=== PATIENT | female | born 1945 | race Caucasian/White ===

== ENCOUNTER 2016-06-28 13:44 | Inpatient (IN) | payer MEDICARE ==
[~2016-06-28] VITALS: Ht 170.2 cm; Wt 109.2 kg
[2016-06-29] MEDS ORDERED: LORA-361 PO (09:51)
[2016-06-29] MEDS ORDERED: BUPR300T PO (09:51)
[2016-06-29] MEDS ORDERED: IBUP200T2 PO (09:51)
[2016-06-29] MEDS ORDERED: VITA100064 PO (09:51)
[2016-06-29] MEDS ORDERED: PAXI10TA2 PO (09:51)
[2016-06-29] MEDS ORDERED: MEDI220T PO (09:51)
[2016-06-29] MEDS ORDERED: INDO25SU PO (09:51)
[2016-06-29] MEDS ORDERED: MAGN250T2 PO (09:51)
[2016-06-29] MEDS ORDERED: CALCCHW9 PO (09:51)
[2016-06-29] MEDS ORDERED: MOBI7.5T PO (09:51)
[2016-06-29] MEDS ORDERED: TRAM50TA PO (09:51)
[2016-06-29] MEDS ORDERED: LOSA100T3 PO (09:51)
[2016-06-29] MEDS ORDERED: SACC1CAP3 PO (09:51)
[2016-06-29] MEDS ORDERED: MULTTAB25 PO (09:51)
[2016-07-16] MEDS ORDERED: SODIUM CHLOR 0.9% 250 ML INJ 250 ML ONE (06:03)
[2016-07-16] MEDS ORDERED: VANCOMYCIN HCL 1000 MG VIAL ONE (06:03)
[2016-07-16] MEDS ORDERED: ceFAZolin 2 GM PREMIX 50 ML ONE (06:03)
[2016-07-16 06:07] VITALS: BP 172/84; PULSE 93; RESP 16; TEMP 98.6; O2SAT 95
[2016-07-16] MEDS ORDERED: GENTAMICIN SULFATE 80 MG/2 ML VIAL ONE (06:27)
[2016-07-16] MEDS ORDERED: HEPARIN SODIUM - SQ 10,000 UNITS/ML VIAL ONE (06:32)
[2016-07-16] MEDS ORDERED: SODIUM CHLORIDE 0.9% INJ 100 ML ONE (06:32)
[2016-07-16] MEDS ORDERED: ceFAZolin INJ 1,000 MG VIAL ONE (06:32)
[2016-07-16] MEDS ORDERED: ENOX40P SQ (06:42)
[2016-07-16] MEDS ORDERED: ASPI81CH37 CHEW (06:43)
[2016-07-16] MEDS ORDERED: HYDR-3288 PO (06:43)
[2016-07-16] MEDS ORDERED: Post-op Orders (for Pharmacy) MISC XX ONE (06:45)
[2016-07-16] MEDS ORDERED: ZOLPIDEM TARTRATE 5 MG TAB PO PRN (06:45)
[2016-07-16] MEDS ORDERED: ONDANSETRON HCL 4 MG/2 ML VIAL IVP PRN (06:45)
[2016-07-16] MEDS ORDERED: NALOXONE HCL 0.4 MG/ML AMP IV PRN (06:45)
[2016-07-16] MEDS ORDERED: BISACODYL 10 MG SUPP RECTAL PRN (06:45)
[2016-07-16] MEDS ORDERED: ACETAMINOPHEN/HYDROcodone 325 MG/7.5 MG TAB PO PRN ×2 (06:45)
[2016-07-16] MEDS ORDERED: diphenhydrAMINE HCL 50 MG/ML VIAL IV PRN (06:45)
[2016-07-16] MEDS ORDERED: fentaNYL CITRATE 250 MCG/5 ML AMP ONE (06:46)
[2016-07-16] MEDS ORDERED: MIDAZOLAM HCL 2 MG/2 ML VIAL ONE (06:46)
[2016-07-16] MEDS ORDERED: ACETAMINOPHEN 1000 MG/100 ML VIAL IV ONE (06:46)
[2016-07-16] MEDS ORDERED: FAMOTIDINE 20 MG/2 ML VIAL ONE (06:47)
[2016-07-16] MEDS ORDERED: DEXAMETHASONE SOD PHOS 4 MG/ML VIAL ONE (06:47)
[2016-07-16] MEDS ORDERED: TRANEXAMIC ACID IV SCH (07:00)
[2016-07-16] MEDS: POVIDONE IODINE 7.5% SCRUB 118 ML BOTTLE TOPICAL SCH (07:00)
[2016-07-16] MEDS ORDERED: ROPIVACAINE PERI-ARTICULAR INJECTION. P-ARTICULR SCH ×5 (07:00)
[2016-07-16] MEDS ORDERED: TRANEXAMIC PERI-ARTICULAR 3,000 MG/NS 100 ML P-ARTICULR SCH ×2 (07:00)
[2016-07-16] MEDS ORDERED: ceFAZolin 1,000 MG/NS 100 ML IV SCH ×2 (07:00)
[2016-07-16] MEDS: CHLORHEXIDINE GLUCONATE 4% SOLN 120 ML BTL TOPICAL SCH (07:00)
[2016-07-16] MEDS ORDERED: SODIUM CHLORIDE 0.9% IV SCH (07:00)
[2016-07-16] MEDS ORDERED: VANCOMYCIN 1000 MG/NS 250 ML (for <70 kg) IV SCH ×2 (07:00)
[2016-07-16] MEDS ORDERED: SODIUM CHLORIDE 0.9% FLUSH 10 ML FLUSH IV FLUSH PRN (08:30)
[2016-07-16] MEDS ORDERED: PILL SPLITTER OTHER PRN (08:45)
[2016-07-16] MEDS ORDERED: NON-FORMULARY DRUG (Losartan-Hydrochlorothiazide 1 TAB) PO SCH (09:00)
[2016-07-16] MEDS: PARoxetine HCL 20 MG TAB PO SCH (09:00)
[2016-07-16] MEDS: HYDROCHLOROTHIAZIDE 12.5 MG CAP PO SCH (09:00)
[2016-07-16] MEDS: LOSARTAN 50 MG TAB PO SCH (09:00)
[2016-07-16] MEDS ORDERED: buPROPion HCL 150 MG EXTENDED RELEASE TAB PO SCH (09:00)
[2016-07-16] MEDS ORDERED: DO NOT ADM ANY ANTICOAGULANT DRUGS PRN (09:01)
[2016-07-16] MEDS ORDERED: *morphine SULFATE 8 MG/ML PERIprocedure ONLY ONE ×2 (09:14→09:20)
--- NOTE | 2016-07-16 09:15 | RADRPT ---
EXAM DATE/TIME: 07/16/2016 07:20 [facility] COMPARISON: No previous studies available for comparison. INDICATIONS : Total left hip replacement. MEDICAL HISTORY : None. SURGICAL HISTORY : None. ENCOUNTER: Initial ACUITY: 1 day PAIN SCORE: Non-responsive. LOCATION: Left hip. FINDINGS: Total hip arthroplasty is in place. The femoral and acetabular components appear intact. CONCLUSION: Intact total hip prosthesis for technique. Saeed Martinez MD on July 16, 2016 at 9:14 Board Certified Radiologist. This report was verified electronically.
--- NOTE | 2016-07-16 09:16 | MP ---
cc: JEFFY ALVAREZ DATE OF SURGERY 07/16/2016 PREOPERATIVE DIAGNOSIS Left hip osteoarthritis POSTOPERATIVE DIAGNOSIS Left hip osteoarthritis PROCEDURE Left total hip arthroplasty. SURGEON Dr. Jeffy Alvarez EDUCATION ADMINISTRATIVE ASSISTANT Francisco J Saravia PA-C ANESTHESIA General. ESTIMATED BLOOD LOSS 200 cc COMPLICATIONS None. IMPLANTS USED DePuy Cor[place] Press-Fit high-offset size 13 femoral stem, size 48 DePuy [place] solid Gription cup, size 32 ceramic head, +5 neck. JUSTIFICATION This patient is a 71-year-old female with history of severe end-stage osteoarthritis involving the left hip. She has severe, disabling pain with standing, walking, ambulation, with weightbearing activities, even severe pain at rest. She has failed greater than three months of nonoperative conservative treatment to include medications, therapy, ambulatory assistive aids, home exercise program, weight loss attempts. X-rays of the left hip reveal severe end-stage osteoarthritis with [id number] joint space narrowing, subchondral sclerosis, subchondral cyst, osteophyte formation and subluxation. The patient was counseled as to the risks, benefits and alternatives to total hip arthroplasty. The risks which were discussed include but are not limited to anesthesia, bleeding, infection, damage to nerves, blood vessels, pain, stiffness, dislocation, leg length discrepancy, blood clots, pulmonary embolism and even . The patient's pain is severe. She favored the benefits over the risks and did wish to proceed with surgery. PROCEDURE IN DETAIL Written consent was obtained. The patient was identified by name and taken to the operating room, placed supine on the operating room table. General anesthesia was administered as well as 2 grams of IV Ancef and 1 gram of IV vancomycin. The patient was transferred to the Ewing table. The left and right feet were placed in the padded traction boots. All bony prominences and pressure points were well padded. The left hip and left lower extremity were prepped and draped using isopropyl alcohol solution, Hibiclens solution and Chloraprep solution. After a time-out was performed, a longitudinal incision was made over the anterolateral aspect of the left hip. The fascial layer was incised. Dissection was carried over tensor fascia aby, beneath the rectus femoris to allow exposure of the anterior capsule. A capsulotomy incision was performed. An oscillating saw was used to perform a femoral neck cut. The osteoarthritic femoral head and neck component was removed. A 10 blade scalpel was used to excise the labrum. Sequential reaming began at size 45-mm and was carried through to size 48-mm. Subsequently, a solid [place] DePuy Gription cup was impacted in approximately 45 degrees of abduction and 10 degrees of anteversion. There was good purchase and fixation after Press-Fit impaction. A screw hole eliminator was placed, followed by neutral liner. The liner was impacted in place and tested for stability. Attention was then turned to the femur where the leg was externally rotated, extended and adducted. The capsule was released at the inner surface of the greater trochanter to allow for elevation and lateralization of the femur. A box-cutting osteotome was used to gain entrance into the intramedullary canal of the femur. This was followed by canal finder and sequential broaching up to size 13. Calcar planer was used to plane the calcar. Trial head and neck combinations were evaluated and the final components implanted. With the +9 neck and 32 ceramic head, the leg could achieve external rotation to 70 degrees and extension all the way down to the ground without evidence of anterior instability. Soft tissue tension felt appropriate. No evidence of impingement. The surgical wound was thoroughly irrigated with sterile saline pulse lavage antibiotic impregnated solution. The fascial layer was closed with #1 Vicryl suture, the subcutaneous layer with 2-0 Vicryl suture. The skin was closed with Dermabond. Sterile dressings were applied. The patient tolerated the procedure well, no intraoperative complications noted. Francisco J Saravia, physician senior sales assistant certified, was present during the entire procedure to include patient positioning and the procedure itself. The medical necessity of a physician senior sales assistant was indicated in this case due to the complexity of the procedure. He assisted with appropriate manipulation of the leg and also retraction of muscle, tendon, bone and neurovascular structures. He assisted with both preparation of bone and also implantation of the prosthetic replacement. Jeffy Alvarez MD JWM/FRANCISCO /8:48 AM /9:02 AM
[2016-07-16] MEDS ORDERED: hydrALAZINE HCL 20 MG/ML VIAL IV PRN (09:45)
[2016-07-16] MEDS ORDERED: *MEPERIDINE 25 MG INJ VIAL PERIprocedural Use ONLY ONE (09:47)
[2016-07-16] MEDS: SODIUM CHLOR 0.9% 1000 ML INJ 1,000 ML IV SCH ×2 (09:54→22:53)
[2016-07-16] MEDS: SODIUM CHLORIDE 0.9% FLUSH 10 ML FLUSH IV FLUSH SCH ×2 (10:00→19:13)
[2016-07-16] MEDS ORDERED: *HYDROmorphone PF 1 MG VIAL PERIprocedural Use ONLY ONE (10:04)
[2016-07-16] MEDS ORDERED: PROPOFOL 200 MG/20 ML AMP IV ONE (10:57)
[2016-07-16] MEDS ORDERED: NEOSTIGMINE 3 MG/3 ML SYR IV ONE (10:57)
[2016-07-16] MEDS ORDERED: PHENYLEPH/NS 1000 MCG/10 ML SYR IV ONE (10:58)
[2016-07-16] MEDS ORDERED: ONDANSETRON HCL 4 MG/2 ML VIAL IV PUSH ONE (10:58)
--- NOTE | 2016-07-16 11:07 | RADRPT ---
EXAM DATE/TIME: 07/16/2016 10:32 [facility] COMPARISON: No previous studies available for comparison. INDICATIONS : Post-op total left hip arthroplasty. MEDICAL HISTORY : Hypertension. SURGICAL HISTORY : Total knee replacement, left. Total knee replacement, right. Fusion, lumbar. Right hand surgery. ENCOUNTER: Initial ACUITY: 1 day PAIN SCORE: 10/10 LOCATION: Left hip. FINDINGS: Examination of the left hip was performed with AP Pelvis. There is a left total hip arthroplasty. Bot h the femoral and acetabular components are appropriately positioned. No fracture. CONCLUSION: Appropriate postoperative appearance of the left hip status post total arthroplasty. Bimal Estrada MD on July 16, 2016 at 11:04 Board Certified Radiologist. This report was verified electronically.
[2016-07-16 12:00] VITALS: BP 145/76; PULSE 83; RESP 16; TEMP 97.1; O2SAT 96
--- NOTE | 2016-07-16 12:44 | PD.CONS ---
HPI Service [facility] Hospitalists Consult Requested By Dr. Joe Reason for Consult Medical management Primary Care Physician Shiva Mcneal M.D. Diagnoses: History of Present Illness This a 71-year-old white female with past medical history osteoarthritis, COPD, hypertension. Patient presented to emergency room for elective surgery. Underwent left hip arthroplasty. Tolerated procedure well, minimal pain. Denies any chest pain, no shortness of breath. Has history of COPD which has been well managed, is not on any oxygen or any DuoNeb's. Quit smoking many years ago. Hospitalist services are requested for medical management. (Karuna Fontaine) Past Family Social History Past Medical History COPD Hypertension Anxiety Osteoarthritis Right breast cancer Past Surgical History L4-L5 fusion Right lumpectomy Cataract surgery Bilateral knee replacement Finger surgery Reported Medications Reported Meds & Active Scripts Active [place] (Hydrocodone-Acetaminophen) 7.5-325 mg Tab 1-2 Tab PO Q6H PRN Aspirin Low Dose (Aspirin) 81 Mg Chew 81 Mg CHEW BID Lovenox Inj (Enoxaparin Sodium) 40 Mg/0.4 Ml Syr 40 Mg SQ DAILY Reported Paxil (Paroxetine HCl) 10 Mg Tab 10 Mg PO DAILY Probiotic (Saccharomyces Boulardii) 250 Mg Cap 250 Mg PO BID Magnesium 250 Mg Tab 250 Mg PO DAILY Vitamin D (Cholecalciferol) 1,000 Unit Tab 1,000 Units PO DAILY Calcium 1200 (Calcium Carbonate-Vitamin D W/Minerals) 1,200-1,000 Mg-Unit Chew 1 Tab PO DAILY Multi For Her 50+ (Multiple Vitamins W/ Minerals) 1 Tab Tab 1 Tab PO DAILY Claritin (Loratadine) 10 Mg Tab 10 Mg PO DAILY PRN Tramadol (Tramadol HCl) 50 Mg Tab 50 Mg PO DAILY PRN Ibuprofen 200 Mg Tab 200 Mg PO Q4H PRN Naproxen Sodium 220 Mg Tab 220 Mg PO DAILY PRN Bupropion HCl ER 24 HR (Bupropion HCl) 300 Mg Tab 300 Mg PO DAILY Losartan-Hydrochlorothiazide 100-12.5 Mg Tab 1 Tab PO DAILY (Karuna Fontaine) Allergies: Coded Allergies: No Known Allergies (Unverified , 07/16/16) Active Ordered Medications Inpatient Medications Acetaminophen/ Hydrocodone Bitart ([place] 7.5-325 Mg) 2 tab Q4H PRN PO PAIN SCALE 5 TO 10; Start 07/16/16 at 06:45; Stop 07/16/16 at 10:53; Status DC Bisacodyl (Dulcolax Supp) 10 mg DAILY PRN RECTAL CONSTIPATION; Start 07/16/16 at 06:45 Bupropion HCl (Wellbutrin Sr) 150 mg BID PO ; Start 07/17/16 at 09:00 Cefazolin Sodium 1000 mg/Sodium Chloride 100 ml @ 200 mls/hr COPER HAND IV ; Start 07/16/16 at 07:00; Stop 07/19/16 at 06:59 Cefazolin Sodium/ Sodium Chloride (Ancef Inj/NS Inj) 100 ml @ 200 mls/hr Q6H IV Last administered on 07/16/16t 13:02; Start 07/16/16 at 12:00; Stop at 00:29 Chlorhexidine Gluconate 1 applic 1 applic ONCE TOPICAL ; Start 07/16/16 at 07:00 ; Stop 07/19/16 at 06:59 Diphenhydramine HCl (Benadryl Inj) 25 mg Q6H PRN IV ITCHING; Start 07/16/16 at 06:45 Docusate Sodium (Colace) 100 mg BID PO ; Start 07/17/16 at 21:00 Enoxaparin Sodium (Lovenox Inj) 40 mg Q24H SQ ; Start 07/17/16 at 08:00; Stop at 08:01 Hydralazine HCl 10 mg 10 mg UNSCH X1 PRN IV SBP > 170, DBP > 90; Start at 09:45; Stop 07/16/16 at 23:59 Hydrochlorothiazide (Microzide) 12.5 mg DAILY PO ; Start 07/16/16 at 09:00 Losartan Potassium (Cozaar) 100 mg DAILY PO ; Start 07/16/16 at 09:00 Miscellaneous (Pill Splitter) 1 ea UNSCH PRN OTHER SEE LABEL COMMENTS; Start at 08:45 Miscellaneous Information ALL NURSING DEPARTME... UNSCH PRN .XX SEE LABEL COMMENTS; Start 07/16/16 at 09:01; Stop 07/17/16 at 09:00 Miscellaneous Information (Post-op Orders (for Pharmacy)) STAT ONCE XX ; Start 07/16/16 at 06:45; Stop 07/16/16 at 08:28; Status DC Morphine Sulfate (Morphine Inj) 3 mg Q3H PRN IV PUSH Pain >7 when off P[employer]IST Last administered on 07/16/16 13:02; Start 07/16/16 at 06:45 Multivitamins/ Minerals Therapeutic (Theragran M Tab) 1 tab BID PO ; Start 07/17 at 21:00; Stop 09/15/16 at 20:59 Naloxone HCl (Narcan Inj) 0.4 mg UNSCH PRN IV RESPIRATORY RATE LESS THAN 10; Start 07/16/16 at 06:45 Ondansetron HCl (Zofran Inj) 4 mg Q6H PRN IVP NAUSEA OR VOMITING; Start at 06:45 Oxycodone/ Acetaminophen (Percocet 10-325 Mg) 1 tab Q4H PRN PO PAIN SCALE 1 TO 10; Start 07/16/16 at 11:00 Paroxetine HCl 10 mg 10 mg DAILY PO ; Start 07/16/16 at 09:00 Povidone Iodine (Betadine 7.5% Scrub) 1 applic ONCE TOPICAL ; Start 07/16/16 at 07:00; Stop 07/19/16 at 06:59 Ropivacaine 24.63 ml/Ketorolac Tromethamine 30 mg/Epinephrine HCl 0.5 mg/ Clonidine 80 mcg/ Sodium Chloride 100 ml @ 200 mls/hr ONCE P-ARTICULR Last administered on 07/16/16 07:33; Start 07/16/16 at 07:00; Stop 07/17/16 at 06:59 Sodium Chloride (NS 1000 ml Inj) 1,000 ml @ 100 mls/hr Q10H IV Last administered on 07/16/16 09:54; Start 07/16/16 at 09:00 Sodium Chloride (NS Flush) 2 ml BID IV FLUSH Last administered on 07/16/16 10: 00; Start 07/16/16 at 09:00 Tranexamic Acid 1635 mg/Sodium Chloride 116.35 ml @ 200 mls/ hr ONCE IV ; Start 07/16/16 at 07:00; Stop 07/16/16 at 13:00; Status DC Tranexamic Acid/ Sodium Chloride (Cyklokapron Inj/ NS Inj) 130 ml @ 260 mls/hr ONCE P-ARTICULR Last administered on 4/17/17at 07:33; Start 07/16/16 at 07:00; Stop 07/17/16 at 06:59 Vancomycin HCl 1000 mg/Sodium Chloride 250 ml @ 250 mls/hr COPER HAND IV ; Start 07/16/16 at 07:00; Stop 07/19/16 at 06:59 Zolpidem Tartrate (Ambien) 5 mg HS PRN PO SLEEP; Start 07/16/16 at 06:45 Family History Father from CVA Social History Patient quit smoking in , no alcohol, no substance abuse. Lives at home with . (Karuna Fontaine) Physical Exam Vital Signs Vital Signs Date Time Temp Pulse Resp B/P Pulse Ox O2 Delivery O2 Flow Rate FiO2 07/16/16 12:13 Nasal Cannula 07/16/16 10:00 98.0 88 13 145/83 99 Nasal Cannula 2 07/16/16 09:45 85 12 159/88 96 Nasal Cannula 3 07/16/16 09:30 98 19 151/90 95 Nasal Cannula 3 07/16/16 09:15 95 14 169/92 94 Nasal Cannula 3 07/16/16 09:04 98.1 111 16 204/103 93 Nasal Cannula 07/16/16 06:07 98.6 93 16 172/84 95 Physical Exam GENERAL: This is a well-nourished, well-developed patient, in no apparent distress. SKIN: No rashes, ecchymoses or lesions. Cool and dry. HEAD: Atraumatic. Normocephalic. No temporal or scalp tenderness. EYES: Pupils equal round and reactive. Extraocular motions intact. No scleral icterus. No injection or drainage. ENT: Nose without bleeding, purulent drainage or septal hematoma. Throat without erythema, tonsillar hypertrophy or exudate. Uvula midline. Airway patent. NECK: Trachea midline. No JVD or lymphadenopathy. Supple, nontender, no meningeal signs. CARDIOVASCULAR: Regular rate and rhythm without murmurs, gallops, or rubs. RESPIRATORY: Clear to auscultation. Breath sounds equal bilaterally. No wheezes , rales, or rhonchi. GASTROINTESTINAL: Abdomen soft, non-tender, nondistended. No hepato-splenomegaly , or palpable masses. No guarding. MUSCULOSKELETAL: Left hip with dressing dry and intact, intact sensation to left foot, left pedal pulse 2+. No other joint abnormality. Right pedal pulse 2+. NEUROLOGICAL: Grossly normal. Laboratory Laboratory Tests Test 07/16/16 05:55 Blood Type O POSITIVE Antibody Screen NEGATIVE Blood Bank Comment (Karuna Fontaine) Imaging Last Impressions Hip and Pelvis X-Ray 07/16/16 0640 Signed Impressions: Service Date/Time: Saturday, July 16, 2016 10:32 - CONCLUSION: Appropriate postoperative appearance of the left hip status post total arthroplasty. Bimal Estrada MD Hip X-Ray 07/16/16 0000 Signed Impressions: Service Date/Time: Saturday, July 16, 2016 07:20 - CONCLUSION: Intact total hip prosthesis for technique. Saeed Martinez MD (Karuna Fontaine) A/P Diagnosis: (1) Anxiety (2) Osteoarthritis (3) Hypertension (4) left hip arthroplasty (5) COPD (chronic obstructive pulmonary disease) Assessment and Plan Thank you for this consultation, we will assist with medical management 71-year-old female with history of osteoarthritis, admitted for elective surgery. Status post left hip arthroplasty -Continue with postoperative orthopedic care Lovenox for DVT prophylaxis Physical therapy Pain management Bowel regimen Wound care Hypertension, stable Continue with home medication Anxiety Continue with home medication History of COPD, stable, no longer smokes DuoNeb's as needed Continue with Lovenox for DVT prophylaxis CBC and BMP in the morning Plan of care has been discussed with the patient, attending and registered nurse. Further management of the patient will be dependent on the hospital course This patient was seen by myself and Dr. Mabry, this consultation is written on his behalf (Karuna Fontaine) Assessment and Plan seen, examined by myself, Dr Mabry, today Discussed with patient Severe hypertension preoperatively Blood pressure better postoperatively Stable Plan for: Pain control Physical therapy DVT prophylaxis Bowel regimen Follow labs Thank you for this consult We will follow with you daily while hospitalized Discussed with mid level provider The exam, history, and the medical decision-making described in the above note were completed with the assistance of the mid-level provider. I reviewed the findings presented. I attest that I had a [id number] encounter with the patient on the same day, and personally performed and documented my assessment and findings in the medical record. (Bong Mabry MD) Problem Qualifiers (1) Osteoarthritis: Qualified Code: M19.90 - Osteoarthritis, unspecified osteoarthritis type, unspecified site (2) Hypertension: Qualified Code: I10 - Essential hypertension (3) COPD (chronic obstructive pulmonary disease): Qualified Code: J44.9 - Chronic obstructive pulmonary disease, unspecified COPD type Karuna Fontaine Jul 16, 2016 12:44 Bong Mabry MD Jul 16, 2016 16:32
--- NOTE | 2016-07-16 12:55 | HHI.DCPOC ---
Discharge Care Plan Diagnosis: (1) Primary localized osteoarthrosis, pelvic region and thigh Your Health Problems Are: Difficulty with ADL Goals to Promote Your Health * To prevent worsening of your condition and complications * To maintain your health at the optimal level Directions to Meet Your Goals Take your medications as prescribed Follow your dietary instruction Follow activity as directed Keep your appointments as scheduled Take your immunizations and boosters as scheduled If your symptoms worsen call your PCP, if no PCP go to Urgent Care Center or Emergency Room Smoking is Dangerous to Your Health. Avoid second hand smoke Call the 24-hour hour crisis hotline for domestic abuse at Jason Saravia Jul 16, 2016 12:55
[2016-07-16] MEDS ORDERED: COMMODE 3-IN-11 MIS (12:57)
[2016-07-16] MEDS ORDERED: WALKER WHEELS/F1 MIS (12:58)
--- NOTE | 2016-07-16 12:59 | HHI.FF ---
Face to Face Verification Diagnosis: (1) Primary localized osteoarthrosis, pelvic region and thigh Physical Therapy Gait training, Safety evaluation, Transfer training, bed to chair Hip: Total hip, Protocol: Left Left LE Weight Bearing: WB as tolerated Nursing RN: 3 days/week x 2 weeks Nursing: Malik teaching, Dressing changes Dressing Changes: Daily dressing change I have seen patient Camila Sen on 07/16/16. My clinical findings support the need for the requested home health care services because: Limited ability to care for self High risk of falls I certify that my clinical findings support that this patient is homebound because: Post-op weakness Unsteady gait/balance Jason Saravia Jul 16, 2016 12:58
[2016-07-16] MEDS: MORPHINE SULFATE 4 MG/ML INJ IV PUSH PRN ×2 (13:02→17:19)
[2016-07-16] MEDS ORDERED: RESP: ALBUTEROL 2.5 MG/IPRATROPIUM 0.5 MG NEB (PRN) NEB (14:45)
[2016-07-16 16:00] VITALS: BP 99/68; PULSE 77; RESP 18; TEMP 98.5; O2SAT 97
[2016-07-16] MEDS: DOCUSATE SODIUM 100 MG CAP PO SCH (17:19)
[2016-07-16 20:00] VITALS: BP 116/59; PULSE 86; RESP 17; TEMP 97.9; O2SAT 94
[2016-07-16 23:00] VITALS: BP 127/60; PULSE 90; RESP 16; TEMP 98.7; O2SAT 95
[2016-07-16] MEDS: oxyCODONE/ACETAMINOPHEN 10 MG/325 MG TAB PO PRN (23:05)
[2016-07-17 03:00] VITALS: BP 97/46; PULSE 84; RESP 17; TEMP 97.6; O2SAT 95
[2016-07-17] MEDS: oxyCODONE/ACETAMINOPHEN 10 MG/325 MG TAB PO PRN ×3 (05:13→13:05)
[2016-07-17] MEDS: CHLORHEXIDINE GLUCONATE 4% SOLN 120 ML BTL TOPICAL SCH (07:00)
[2016-07-17] MEDS: POVIDONE IODINE 7.5% SCRUB 118 ML BOTTLE TOPICAL SCH (07:00)
[2016-07-17 07:21] LABS: HEMATOCRIT 32.7 % (35.0-46.0); MEAN CELL VOLUME 84.5 FL (80.0-100.0); MEAN CORPUSCULAR HEMOGLOBIN 28.6 PG (27.0-34.0); MEAN CORPUSCULAR HGB CONC 33.8 % (32.0-36.0); PLATELET COUNT 170 TH/MM3 (150-450); RED BLOOD COUNT 3.87 MIL/MM3 (4.00-5.30); RED CELL DISTRIBUTION WIDTH 14.8 % (11.6-17.2); REVIEW FLAG FINAL; WHITE BLOOD COUNT 12.8 TH/MM3 (4.0-11.0)
[2016-07-17 07:45] LABS: BICARBONATE 28.2 MEQ/L (21.0-32.0); MAGNESIUM 2.4 MG/DL (1.5-2.5)
[2016-07-17 07:58] VITALS: BP 114/59; PULSE 86; RESP 16; TEMP 97.9; O2SAT 97
[2016-07-17] MEDS ORDERED: ENOXAPARIN SODIUM 40 MG/0.4 ML SYRINGE SQ SCH (08:00)
--- NOTE | 2016-07-17 08:10 | PD.ORT.PN ---
Subjective Post Op Day #: 1 Subjective Remarks pain under control. denies cp and sob. Objective Vitals Vital Signs Date Time Temp Pulse Resp B/P Pulse Ox O2 Delivery O2 Flow Rate FiO2 07/17/16 07:58 97.9 86 16 114/59 97 07/17/16 03:00 97.6 84 17 97/46 95 07/16/16 23:00 98.7 90 16 127/60 95 07/16/16 20:00 97.9 86 17 116/59 94 07/16/16 17:29 Room Air 07/16/16 16:00 98.5 77 18 99/68 97 07/16/16 12:13 Nasal Cannula 07/16/16 12:00 97.1 83 16 145/76 96 07/16/16 10:00 98.0 88 13 145/83 99 Nasal Cannula 2 07/16/16 09:45 85 12 159/88 96 Nasal Cannula 3 07/16/16 09:30 98 19 151/90 95 Nasal Cannula 3 07/16/16 09:15 95 14 169/92 94 Nasal Cannula 3 07/16/16 09:04 98.1 111 16 204/103 93 Nasal Cannula I/O 07/16/16 07/16/16 07/16/16 07/17/16 07/17/16 07/17/16 07:00 15:00 23:00 07:00 15:00 23:00 Intake Total 1861 ml 480 ml Output Total 1080 ml 500 ml Balance 781 ml -20 ml Intake Oral 480 ml 480 ml IV Total 381 ml Other 1000 ml Output Urine Total 880 ml 500 ml Estimated Blood Loss 200 ml # Bowel Movements 0 Result Diagram: 07/17/16 0633 07/17/16 0635 Objective Remarks in bed, nad incision no erythema, no drainage thigh soft neg homans nvi Assessment & Plan Ortho Post Op Day #: 1 Problem List: Assessment and Plan s/p L KWAME anterior approach wbat daily dressing changes lovenox rx in chart d/c planning home with [facility] and pt - cleared for d/c today if progresses in PT and pain under control f/up dr. fonseca 2 weeks Jason Saravia Jul 17, 2016 08:10
[2016-07-17] MEDS: HYDROCHLOROTHIAZIDE 12.5 MG CAP PO SCH (09:00)
[2016-07-17] MEDS: LOSARTAN 50 MG TAB PO SCH (09:00)
[2016-07-17] MEDS ORDERED: buPROPion HCL 150 MG SUSTAINED RELEASE TAB PO SCH (09:00)
[2016-07-17] MEDS: DOCUSATE SODIUM 100 MG CAP PO SCH ×2 (09:01→13:05)
[2016-07-17] MEDS: SODIUM CHLORIDE 0.9% FLUSH 10 ML FLUSH IV FLUSH SCH (09:04)
[2016-07-17] MEDS: PARoxetine HCL 20 MG TAB PO SCH (09:21)
--- NOTE | 2016-07-17 13:08 | HHI.PR ---
Subjective Remarks resting in bed alert, oriented talking on phone no family present. lt. hip dressing CDI afebrile Objective Objective Results - Vital Signs Date Time Temp Pulse Resp B/P Pulse Ox O2 Delivery O2 Flow Rate FiO2 07/17/16 07:58 97.9 86 16 114/59 97 07/17/16 03:00 97.6 84 17 97/46 95 07/16/16 23:00 98.7 90 16 127/60 95 07/16/16 20:00 97.9 86 17 116/59 94 07/16/16 17:29 Room Air 07/16/16 16:00 98.5 77 18 99/68 97 I/O 07/16/16 07/16/16 07/16/16 07/17/16 07/17/16 07/17/16 07:00 15:00 23:00 07:00 15:00 23:00 Intake Total 1861 ml 480 ml Output Total 1080 ml 500 ml Balance 781 ml -20 ml Intake Oral 480 ml 480 ml IV Total 381 ml Other 1000 ml Output Urine Total 880 ml 500 ml Estimated Blood Loss 200 ml # Bowel Movements 0 Result Diagram: 07/17/16 0633 07/17/16 0635 ROS General: Fatigue (mild), Weakness, Other (10 point ROS done, BS 13, non DM, monitor, other systems noted, or unremarkable) GI: BM (none yet) Skin: Other (lt. hip incision, CDI) Physical Exam Physical Exam PHYSICAL EXAMINATION GENERAL: This is a well-developed, well-nourished female who appears to be in no acute distress. She is alert and awake, HEAD: Normocephalic without any lesion or mass noted. Facial features appear symmetric. OROPHARYNGEAL: Oropharynx without erythema or edema. NECK: Supple. No nuchal rigidity or lymphadenopathy. Trachea midline without deviation. CARDIAC: Regular rhythm, regular rate, S1 and S2 are heard. Murmur none, distant no gallops or rubs. LUNGS: Clear to auscultation bilaterally. no wheeze,no rhonchi No use of accessory muscles on inspiration or expiration. ABDOMEN: Soft, nontender, no organomegaly or masses. Bowel sounds are heard in all four quadrants. No rebound. No guarding. EXTREMITIES: mild lt hip edema. No bleeding noted. Pulses equal bilateral. NEUROLOGICAL: Patient mood and affect appropriate. No focal deficit SKIN:Warm and moist Objective Remarks Im doing ok . A/P Assessment and Plan Diagnosis: (1) Anxiety (2) Osteoarthritis (3) Hypertension (4) left hip arthroplasty (5) COPD (chronic obstructive pulmonary disease) -Continue with postoperative orthopedic care Lovenox for DVT prophylaxis Physical therapy, up in rm. Pain management per ortho Bowel regimen, no BM today, but feels she will go. Wound care, monitor incision. Hypertension, stable Continue with home medication Anxiety Continue with home medication History of COPD, stable, no longer smokes DuoNeb's as needed labs reviewed, mild leukocytosis, hgb stable at 11., BS 131, non DM, instructed patient to monitor diet and activity after DC. vitals reviewed, stable Discussed With: Nurse, Family (pt.), Other (Dr. Mabry, seen on his behalf) Janis Ge Jul 17, 2016 13:08
[2016-07-17 14:00] VITALS: BP 122/60; PULSE 84; RESP 16; TEMP 98.1; O2SAT 98
[2016-07-17] MEDS ORDERED: DOCUSATE SODIUM 100 MG CAP PO SCH (21:00)
[2016-07-17] MEDS ORDERED: MULTIVITAMINS/MINERALS THERAPEUTIC TAB PO SCH (21:00)
--- NOTE | 2016-07-24 12:58 | MD ---
cc: JEFFY JOE M.D. ADMISSION DATE: 07/16/2016 DISCHARGE DATE: 07/17/2016 ADMISSION DIAGNOSIS Severe degenerative osteoarthritis left hip. DISCHARGE DIAGNOSIS Severe degenerative osteoarthritis left hip. HISTORY OF PRESENT ILLNESS Ms. Sen is a 71-year-old female who presented to the [facility] for evaluation by Dr. Jeffy Joe regarding her severe and progressive bilateral hip pain left greater than right. She states her hips have been bothering her for many years and currently they are inhibiting her activities of daily living. She notes the pain in her left hip is slightly worse than the pain in her right hip and she notes currently it is even difficult to ambulate due to the discomfort. She notes there is no alleviating factors at this point in time, although she has tried medications, physical therapy, assistive devices, home exercise program, weight loss attempts and even steroid injection without relief of symptoms. She has x-ray evidence of severe degenerative osteoarthritis of the left hip. While in the office, the patient was counseled on her diagnosis and treatment options. The risks, benefits, and indications were discussed. The patient did elect to proceed with surgical intervention to include a left total hip arthroplasty. Date of surgery 07/16/2016 - left total hip arthroplasty anterior approach. Postop after surgery, the patient admitted to [facility] where she received appropriate medical management, pain control, DVT prophylaxis, as well as physical therapy. DISCHARGE Once being discharged from the hospital, the patient is cleared to go home where she will receive home health care and home physical therapy. She is in stable condition. She may weight-bear as tolerated with anterior hip precautions. She has received daily dressing changes and has been instructed on appropriate wound care management. She has been provided prescriptions for pain control, as well as DVT prophylaxis medication. She has also been provided a follow-up appointment to see Dr. Jeffy Joe in the office in approximately two weeks from her date of surgery. The patient has asked appropriate questions which have all been answered. The patient has been discharged. Dictated by: Francisco J Saravia PA-C MD KYAW Gamboa/FAUSTINO /8:06 AM /12:54 PM
== END 2016-07-17 16:46 | disposition home health service (06) | DRG 470 ==
LOC: HSDI 07-16 05:35 → EDUNIT# 07-16 07:00 → N06A 07-16 10:29
PROVIDERS: ADMIT Orthopaedic Surgery Sports Medicine; ATTEND Orthopaedic Surgery Sports Medicine
PROC: 0SRB03A Replacement of Left Hip Joint with Ceramic Synthetic Substitute, Uncemented, Open Approach (ICD-10-PCS; principal; 2016-07-16 06:49)
DX: M16.12 Unilateral primary osteoarthritis, left hip (principal); J44.9 Chronic obstructive pulmonary disease, unspecified; I10 Essential (primary) hypertension; Z87.891 Personal history of nicotine dependence; Z85.3 Personal history of malignant neoplasm of breast; Z96.653 Presence of artificial knee joint, bilateral; F41.9 Anxiety disorder, unspecified; Z82.3 Family history of stroke
CPT/HCPCS: 73502; 76000; 80048; 83735; 84100; 85027; 86850; 86900; 86901; C1776; J0131; J0171; J0690; J0735; J1100; J1170; J1580; J1644; J1650; J1885; J2175; J2250; J2270; J2370; J2405; J2710; J2795; J3010; J3370; J7030; J7050

== ENCOUNTER → 2016-06-29 | Outpatient (CLI) | payer MEDICARE ==
[~2016-06-29] MED LIST: ASPI81CH37 CHEW; BUPR300T PO; CALCCHW9 PO; COMMODE 3-IN-11 MIS; ENOX40P SQ; HYDR-3288 PO; IBUP200T2 PO; INDO25SU PO; LORA-361 PO; LOSA100T3 PO; MAGN250T2 PO; MEDI220T PO; MOBI7.5T PO; MULTTAB25 PO; PAXI10TA2 PO; SACC1CAP3 PO; TRAM50TA PO; VITA100064 PO; WALKER WHEELS/F1 MIS
[2016-06-29 09:37] LABS: AUTOMATED NEUTROPHIL # 6.6 TH/MM3 (1.8-7.7); BASOPHIL # 0.1 TH/MM3 (0-0.2); BASOPHIL % 0.9 % (0.0-2.0); EOSINOPHIL # 0.2 TH/MM3 (0-0.4); HEMATOCRIT 44.1 % (35.0-46.0); HEMO FLAGS DIFF FINAL; LYMPH % 19.1 % (9.0-44.0); LYMPHOCYTE # 1.9 TH/MM3 (1.0-4.8); MEAN CORPUSCULAR HEMOGLOBIN 28.6 PG (27.0-34.0); MEAN CORPUSCULAR HGB CONC 33.6 % (32.0-36.0); MONO % 9.5 % (0.0-8.0); NEUT % 68.5 % (16.0-70.0); PLATELET COUNT 228 TH/MM3 (150-450); RED BLOOD COUNT 5.19 MIL/MM3 (4.00-5.30); RED CELL DISTRIBUTION WIDTH 14.4 % (11.6-17.2); WHITE BLOOD COUNT 9.7 TH/MM3 (4.0-11.0)
[2016-06-29 09:45] LABS: BLOOD, URINE NEG (NEG); GLUCOSE,URINE NEG (NEG); KETONE, URINE NEG (NEG); MUCUS URINE FEW /lpf (OCC); NITRITE,URINE NEG (NEG); PH, URINE 5.5 (5.0-8.5); SQUAMOUS EPITHELIAL CELL URINE <1 /hpf (0-5); URINE COLOR YELLOW (YELLW/STRAW)
[2016-06-29 09:48] LABS: APTT (PATIENT) 25.3 SEC (24.3-30.1); INTERNATIONAL NORMALIZED RATIO 0.9 RATIO
[2016-06-29 09:49] LABS: COMMENT (UR) CULT NOT INDICATED; CULTURE IF INDICATED CULT NOT INDICATED
[2016-06-29 09:54] LABS: WESTERGREN SEDIMENTATION RATE 2 mm/hr (0-30)
[2016-06-29 10:00] LABS: ALKALINE PHOSPHATASE 107 U/L (45-117); ALT (GPT) 32 U/L (10-53); ANION GAP 8 MEQ/L (5-15); AST (GOT) 23 U/L (15-37); BICARBONATE 30.2 MEQ/L (21.0-32.0); BLOOD UREA NITROGEN 26 MG/DL (7-18); CHLORIDE 102 MEQ/L (98-107); GLOMERULAR FILTRATION RATE 52 ML/MIN (>89); GLUCOSE,FASTING 122 MG/DL (74-99); POTASSIUM 4.3 MEQ/L (3.5-5.1); SODIUM (NA) 140 MEQ/L (136-145); TOTAL BILIRUBIN ADULT 0.4 MG/DL (0.2-1.0)
--- NOTE | 2016-06-29 12:05 | RADRPT ---
EXAM DATE/TIME: 06/29/2016 11:38 [facility] COMPARISON: No previous studies available for comparison. INDICATIONS : Pre operative for left hip replacement. Evaluate for pneumonia, pneumothorax, or communicable disease . MEDICAL HISTORY : Chronic obstructive pulmonary disease. SURGICAL HISTORY : Lumpectomy, right breast. ENCOUNTER: Initial ACUITY: 1 day PAIN SCORE: 0/10 LOCATION: Bilateral chest FINDINGS: PA and lateral views of the chest demonstrate the lungs to be symmetrically aerated without evidence of mass, infiltrate or effusion. The cardiomediastinal contours are unremarkable. Osseous structure s are intact. CONCLUSION: No acute disease. Zak Crum MD FACR on June 29, 2016 at 12:03 Board Certified Radiologist. This report was verified electronically.
--- NOTE | 2016-06-29 16:22 | EKG ---
Date Performed: 06/29/2016 Time Performed: 09:40:34 PTAGE: 71 years EKG: Sinus rhythm NORMAL ECG NO PREVIOUS TRACING DOCTOR: Frida Landeros Interpretating Date/Time 06/29/2016 16:21:21
== END ==
LOC: CPRE 09:01
PROVIDERS: ATTEND Orthopaedic Surgery Sports Medicine
DX: Z01.810 Encounter for preprocedural cardiovascular examination (principal); M16.12 Unilateral primary osteoarthritis, left hip; M25.50 Pain in unspecified joint; Z79.01 Long term (current) use of anticoagulants
CPT/HCPCS: 36415; 71020; 80053; 81001; 85025; 85610; 85652; 85730; 93005